=== PATIENT | female | born 1985 | race Two or more races ===

== ENCOUNTER → 2024-09-26 | Outpatient (CLI) | payer MEDICAID, SELFPAY ==
--- NOTE | 2024-09-26 10:00 | XR_ITS ---
Examination: Screening digital mammography, bilateral Computer aided detection 3-D breast Tomosynthesis, bilateral Date and time of exam: September 26, 2024 1001 hours No priors Indication: Screening, family history breast cancer Technique: Nonmagnified MLO, CC views of the breasts to been obtained, reconstructed from 3-D Tomosynthesis images. R2 computer aided detection program utilized for evaluation of suspicious masses and/or abnormal calcifications. 3-D Tomosynthesis images obtained. Findings: Scattered areas of fibroglandular density. Benign calcifications. No suspicious masses Impression: BI-RADS category II: Benign Findings. Recommend 1 year follow-up mammogram.
== END | disposition home or self-care (01) ==
PROVIDERS: Referring Provider Registered Nurse Community Health; Visit Provider Registered Nurse Community Health
DX: Z12.31 Encounter for screening mammogram for malignant neoplasm of breast (principal); Z80.3 Family history of malignant neoplasm of breast; R92.323 Mammographic fibroglandular density, bilateral breasts; R92.1 Mammographic calcification found on diagnostic imaging of breast
CPT/HCPCS: 77063; 77067

== ENCOUNTER 2024-10-20 21:25 | Emergency (ER) | payer MEDICAID, SELFPAY ==
[2024-10-20 21:26] VITALS: BMI 45.5
[2024-10-20 21:46] VITALS: BP 144/92; PULSE 85; RESP 18; TEMP 37.1; O2SAT 98
[2024-10-20] MEDS: CYCLObenzaPRINE 5 MG TABLET PO (22:13)
[2024-10-20] MEDS: KETOROLAC INJ 60 MG/2 ML VIAL IM (22:13)
--- NOTE | 2024-10-20 23:17 | PD.EDBACK ---
ED Back Injury Pain RME/HPI General Chief Complaint: Back Pain/Injury Stated Complaint: LOWER BACK PAIN SINCE YEST HX KIDNEY STONES Time Seen by Provider: 10/20/24 22:04 Arrival date/time: 10/20/24 21:25 39F with history of HTN presents to ED with 2 days of lower back pain that radiates down both legs. Patient denies fall/trauma, paresthesia, dysuria/hematuria, N/V and bowel/bladder incontinence. Patient has had kidney stones and states this feels different. Limitations: no limitations Related Data Home Medications ?Medication ?Instructions ?Recorded ?Confirmed fluoxetine 40 mg capsule 40 mg PO QDAY 01/03/22 01/03/22 Previous Rx's ?Medication ?Instructions ?Recorded hydrocodone 5 mg-acetaminophen 325 1 tab PO BID PRN pain #6 tabs 01/22/22 mg tablet ibuprofen 800 mg tablet 800 mg PO TID PRN pain #30 tabs 01/22/22 clindamycin phosphate 1 % lotion 1 applic topical BID #60 mL 05/29/23 naproxen 500 mg tablet 500 mg PO BID PRN pain #30 tabs 05/29/23 lisinopril 10 1 tab PO QDAY #30 tabs 08/14/23 mg-hydrochlorothiazide 12.5 mg tablet albuterol sulfate 90 mcg/actuation 2 puff inhalation Q6H PRN 10/21/23 aerosol inhaler (Ventolin HFA) shortness of breath or wheezing #8.5 grams azithromycin 500 mg tablet See Rx Instructions PO .COMPLEX #6 10/21/23 tabs benzonatate 100 mg capsule 100 mg PO TID #14 caps 10/21/23 etodolac 400 mg tablet 400 mg PO BID PRN pain #30 tabs 06/06/24 tramadol 37.5 mg-acetaminophen 325 1 tab PO BID PRN pain #15 tabs 06/06/24 mg tablet cyclobenzaprine 5 mg tablet 5 mg PO TID PRN muscle spasm #30 10/20/24 tabs Allergies Allergy/AdvReac Type Severity Reaction Status Date / Time No Known Allergies Allergy Verified 10/20/24 21:29 Review of Systems Review of Systems Systems Reviewed: All systems reviewed, normal except as documented Constitutional Constitutional: Reports system reviewed and no additional complaints, except as documented, Denies fever(s) and Denies headache(s) ENT Ears, Nose, Mouth, and Throat: Denies disequilibrium and Denies headache(s) Cardiovascular Cardiovascular: Reports system reviewed and no additional complaints, except as documented, Denies chest pain and Denies dyspnea Respiratory Respiratory: Reports system reviewed and no additional complaints, except as documented, Denies cough and Denies dyspnea Gastrointestinal Gastrointestinal: Reports system reviewed and no additional complaints, except as documented, Denies abdominal pain, Denies nausea and Denies vomiting Musculoskeletal Musculoskeletal: Reports as per HPI and Reports back pain Neurologic Neurologic: Reports system reviewed and no additional complaints, except as documented, Denies confusion, Denies disequilibrium and Denies headache(s) Psychiatric Psychiatric: Denies confusion Past Medical History Past Medical History NEUROLOGIC: Positive Migraine CARDIAC: Positive Cardiac Disorders; Negative Congestive Heart Failure or Hypertension RESPIRATORY: Positive Asthma; Negative Chronic Obstructive Pulmonary Disease (COPD) GENITOURINARY: Negative Renal Disease REPRODUCTIVE: Positive Previous Pregnancies MUSCULOSKELETAL: Positive Musculoskeletal Disorders and Arthritis ENDOCRINE: Negative Diabetes Mellitus Type 1 or Diabetes Mellitus Type 2 HEMATOLOGIC: Negative Blood Disorders or Sickle Cell Disease PSYCHO/SOCIAL: Positive Depression OTHER HISTORY: Negative Autoimmune Disease or Cancer Family History FAMILY HISTORY: Positive Family Cardiac Disorders (brother and mother) and Family Cancer (dad's dide); Negative Family Surgery or Family Anesthesia Reaction Surgical History SURGICAL: Positive Neurologic Surgery (brain sx at 15 days old) and Tubal Ligation (2006) Social History SMOKING STATUS: Never smoker ED Exam General Limitations: Present no limitations General appearance: Present alert and in no apparent distress Head Head exam: Present atraumatic Eye Eye exam: Present normal appearance, PERRL and EOMI ENT ENT exam: Present normal exam, normal oropharynx and mucous membranes moist Neck Neck exam: Present normal inspection, full ROM and trachea midline Chest Chest inspection: Present normal inspection and symmetric chest wall rise Respiratory Respiratory exam: Present normal lung sounds bilaterally Cardiovascular Cardiovascular exam: Present regular rate, normal rhythm and normal heart sounds Abdominal Exam Abdominal exam: Present soft and normal bowel sounds Extremities Exam Extremities exam: Present normal inspection and full ROM Back Exam Back exam: Present normal inspection and full ROM Neurological Exam Neurological exam: Present alert, oriented X3 and CN II-XII intact Psychiatric Psychiatric exam: Present normal affect and normal mood Skin Skin exam: Present warm, dry, intact and normal color Course Quality Measures none Orders Category Date Time Status CYCLObenzaPRINE [Flexeril] Med 10/20/24 22:05 Discontinued 5 mg PO X1 ONE Ketorolac Inj [Toradol Inj] Med 10/20/24 22:05 Discontinued 60 mg IM X1 ONE Vital Signs Vital signs: Vital Signs Temperature 98.8 F 10/20/24 21:46 Pulse Rate 85 10/20/24 21:46 Respiratory Rate 18 10/20/24 21:46 Blood Pressure 144/92 H 10/20/24 21:46 Pulse Oximetry (%) 98 10/20/24 21:46 Oxygen Delivery Method Room Air 10/20/24 21:46 O2 at 98% on RA and WNLs Back Pain / Injury MDM Narrative MDM Narrative:: 39F with history of HTN presents to ED with 2 days of lower back pain that radiates down both legs. Patient denies fall/trauma, paresthesia, dysuria/hematuria, N/V and bowel/bladder incontinence. Patient has had kidney stones and states this feels different. Physical exam reveals no back tenderness. Pain is with ROM, which is intact. Patient is afebrile, calm, and alert. Likely MSK in nature. Meds improved symptoms. Patient data External records reviewed:: [facility] previous records Clinical information provided by:: patient Social determinants that could affect healthcare access:: none Patient has the following chronic illnesses:: HTN How is presenting disease/condition affected by chronic disease/condition?: uneffected by Evaluation data The following diagnostics were reviewed and interpreted by me:: other (specify) (none) Lab and/or radiology exams considered but not ordered:: not ordered Interpretation Summary: n/a Medications / Prescriptions Medications or Prescriptions considered but not ordered:: ordered Medication administrations:: Medication Administration History Discontinued Medications Cyclobenzaprine HCl (Cyclobenzaprine 5 Mg Tablet) 5 mg PO X1 ONE Stop: 10/20/24 22:06 Last Admin: 10/20/24 22:13 Dose: 5 mg Documented By: OA Ketorolac Tromethamine (Ketorolac Inj 60 Mg/2 Ml Vial) 60 mg IM X1 ONE Stop: 10/20/24 22:06 Last Admin: 10/20/24 22:13 Dose: 60 mg Documented By: COLLEEN above Consultations Consultation(s) initiated? (list below): No Diagnosis Differential diagnosis back pain/injury: lumbar radiculopathy, sciatica, strain of lumbar region, renal colic, pyelonephritis, thoracic back pain, AAA, discitis and other (back pain) Most likely diagnosis given after review of the tests above:: back pain Admission Indicated Admission indicated?: not indicated Admission Request Was there a request for admission?: No Disposition Plan Disposition Plan: Discharge Discharge Attestation Discharge Attestation: The patient and all family members were given an opportunity to ask questions and understood the discharge instructions. Discharge instructions specifically effects, indications for sooner follow up or return to the emergency department, and the expected course of current diagnosis. Patient condition: Stable Discharge Plan Plan Patient Disposition: HOME (Self Care) Disposition Comment: Stable Prescriptions/Referrals Prescriptions/Med Rec: New cyclobenzaprine 5 mg tablet 5 mg PO TID PRN (Reason: muscle spasm) Qty: 30 0RF No Action ibuprofen 800 mg tablet 800 mg PO TID PRN (Reason: pain) Qty: 30 0RF hydrocodone-acetaminophen 5-325 mg tablet 1 tab PO BID MDD 10 PRN (Reason: pain) Qty: 6 0RF fluoxetine 40 mg Capsule 40 mg PO QDAY naproxen 500 mg tablet 500 mg PO BID PRN (Reason: pain) Qty: 30 0RF clindamycin phosphate 1 % lotion 1 applic topical BID Qty: 60 0RF lisinopril-hydrochlorothiazide 10-12.5 mg tablet 1 tab PO QDAY Qty: 30 0RF benzonatate 100 mg capsule 100 mg PO TID Qty: 14 0RF albuterol sulfate [Ventolin HFA] 90 mcg/actuation HFA aerosol inhaler 2 puff inhalation Q6H PRN (Reason: shortness of breath or wheezing) Qty: 8.5 0RF azithromycin 500 mg tablet See Rx Instructions .ROUTE .COMPLEX Qty: 6 0RF Rx Instructions: take 500 mg today (day 1), then 250 mg for 4 days (days 2-5) etodolac 400 mg tablet 400 mg PO BID PRN (Reason: pain) Qty: 30 0RF tramadol-acetaminophen 37.5-325 mg tablet 1 tab PO BID PRN (Reason: pain) Qty: 15 0RF Problem List Clinical Impression: Back pain Patient/Caregiver Discharge Instructions Additional Instructions: Please follow-up with PCP within 24-48 hours and return immediately if symptoms worsen. If problem persists, recommend outpatient PT and/or MRI follow-up. In the meantime, rest, use ice/heat, and/or compression. Ibuprofen/Tylenol can be used simultaneously for greater fever/pain control. Print Language: Czech Stand Alone Forms: Patient Portal Info Letter PA/GENERAL SERVICE TECHNICIAN Supervising Physician PA/GENERAL SERVICE TECHNICIAN Supervising Physician: Dr. Sotomayor
== END 2024-10-20 22:48 | disposition home or self-care (01) ==
PROVIDERS: Emergency Provider Emergency Medicine; PCP Registered Nurse Community Health
DX: M54.50 Low back pain, unspecified (principal)
CPT/HCPCS: 96372; 99283; J1885; A9270

== ENCOUNTER 2024-11-22 22:10 | Emergency (ER) | payer MEDICAID, SELFPAY ==
[2024-11-22 22:11] VITALS: BMI 44.8
[2024-11-22 22:55] VITALS: BP 152/94; PULSE 91; RESP 19; TEMP 37.2; O2SAT 97
--- NOTE | 2024-11-22 23:12 | XR_ITS ---
Examination: CT brain head without contrast. 2-D sagittal coronal reconstructions Date and time of exam:November 22, 2024 11:23 PM Indications: Headaches with elevated blood pressure today CTDI: vol (mGy):54.70 DLP: (mGycm):1199 Technique: Multiple CT axial sections of the brain have been obtained, 5 mm slice thickness. Contrast has not been administered. 2-D sagittal, coronal reconstructions have been obtained Low dose protocols were performed. One or more of the following dose reduction techniques were used; automated exposure control, adjustment of the mA and/or KV according to patient size, use of iterative reconstruction technique. Findings: No significant ventricular enlargement. Intra-axial or extra-axial hemorrhage density is not seen. No mass effect or midline shift Basal cisterns are not remarkable. Fourth ventricle is midline. Cranial vault intact. Impression: Negative for acute hemorrhage, mass effect or midline shift
--- NOTE | 2024-11-22 23:13 | PD.EDRME ---
Rapid Medical Screening Exam RME Arrival date/time: 11/22/24 22:10 39-year-old female past medical history of hypertension presents emergency department complaining of headache and lightheadedness that started today. Chief Complaint: Headache Time Seen by Provider: 11/22/24 23:03 Vital signs: Vital Signs Temperature 99 F 11/22/24 22:55 Pulse Rate 91 11/22/24 22:55 Respiratory Rate 19 11/22/24 22:55 Blood Pressure 152/94 H 11/22/24 22:55 Pulse Oximetry (%) 97 11/22/24 22:55 Oxygen Delivery Method Room Air 11/22/24 22:55 Vital signs reviewed by provider: Yes
[2024-11-22] MEDS: ACETAMINOPHEN 500 MG TABLET 1000 MG PO (23:43)
[2024-11-22] MEDS: METOCLOPRAMIDE 5 MG TABLET 10 MG PO (23:44)
--- NOTE | 2024-11-22 23:59 | EDNOTE_ITS ---
ED Headache RME/HPI General Chief Complaint: Headache Stated Complaint: LIGHT HEADED, HIGH BP Time Seen by Provider: 11/22/24 23:03 Source: patient Arrival date/time: 11/22/24 22:10 39-year-old female past medical history of hypertension presents emergency department complaining of headache and lightheadedness that started today. Mode of arrival: ambulatory Limitations: no limitations RME / HPI RME / HPI Narrative: 11/22/24 22:10 39-year-old female past medical history of hypertension presents emergency department complaining of headache and lightheadedness that started today. Related Data Home Medications ?Medication ?Instructions ?Recorded ?Confirmed fluoxetine 40 mg capsule 40 mg PO QDAY 01/03/22 01/03/22 Previous Rx's ?Medication ?Instructions ?Recorded hydrocodone 5 mg-acetaminophen 325 1 tab PO BID PRN pain #6 tabs 01/22/22 mg tablet ibuprofen 800 mg tablet 800 mg PO TID PRN pain #30 tabs 01/22/22 clindamycin phosphate 1 % lotion 1 applic topical BID #60 mL 05/29/23 naproxen 500 mg tablet 500 mg PO BID PRN pain #30 tabs 05/29/23 lisinopril 10 1 tab PO QDAY #30 tabs 08/14/23 mg-hydrochlorothiazide 12.5 mg tablet albuterol sulfate 90 mcg/actuation 2 puff inhalation Q6H PRN 10/21/23 aerosol inhaler (Ventolin HFA) shortness of breath or wheezing #8.5 grams azithromycin 500 mg tablet See Rx Instructions PO .COMPLEX #6 10/21/23 tabs benzonatate 100 mg capsule 100 mg PO TID #14 caps 10/21/23 etodolac 400 mg tablet 400 mg PO BID PRN pain #30 tabs 06/06/24 tramadol 37.5 mg-acetaminophen 325 1 tab PO BID PRN pain #15 tabs 06/06/24 mg tablet cyclobenzaprine 5 mg tablet 5 mg PO TID PRN muscle spasm #30 10/20/24 tabs Allergies Allergy/AdvReac Type Severity Reaction Status Date / Time No Known Allergies Allergy Verified 10/20/24 21:29 Review of Systems Review of Systems Systems Reviewed: All systems reviewed, normal except as documented Constitutional Constitutional: Reports system reviewed and no additional complaints, except as documented, Denies body ache(s), Denies chills, Denies fever(s) and Reports headache(s) Eyes Eyes: Reports system reviewed and no additional complaints, except as documented and Denies change in vision ENT Ears, Nose, Mouth, and Throat: Reports system reviewed and no additional complaints, except as documented, Denies disequilibrium, Denies dizziness, Reports headache(s), Denies sore throat and Denies vertigo Cardiovascular Cardiovascular: Reports system reviewed and no additional complaints, except as documented, Denies chest pain and Denies dyspnea Respiratory Respiratory: Reports system reviewed and no additional complaints, except as documented, Denies chest congestion, Denies cough and Denies dyspnea Gastrointestinal Gastrointestinal: Reports system reviewed and no additional complaints, except as documented, Denies abdominal pain, Denies nausea and Denies vomiting Musculoskeletal Musculoskeletal: Reports system reviewed and no additional complaints, except as documented, Denies abnormal gait and Denies arthralgias Integumentary/Breasts Skin/Breast: Reports system reviewed and no additional complaints, except as documented, Denies erythema, Denies rash and Denies wounds Neurologic Neurologic: Reports system reviewed and no additional complaints, except as documented, Denies abnormal gait, Denies disequilibrium, Denies dizziness, Reports headache(s) and Denies vertigo Past Medical History Past Medical History NEUROLOGIC: Positive Migraine CARDIAC: Positive Cardiac Disorders; Negative Congestive Heart Failure or Hypertension RESPIRATORY: Positive Asthma; Negative Chronic Obstructive Pulmonary Disease (COPD) GENITOURINARY: Negative Renal Disease REPRODUCTIVE: Positive Previous Pregnancies MUSCULOSKELETAL: Positive Musculoskeletal Disorders and Arthritis ENDOCRINE: Negative Diabetes Mellitus Type 1 or Diabetes Mellitus Type 2 HEMATOLOGIC: Negative Blood Disorders or Sickle Cell Disease PSYCHO/SOCIAL: Positive Depression OTHER HISTORY: Negative Autoimmune Disease or Cancer Family History FAMILY HISTORY: Positive Family Cardiac Disorders (brother and mother) and Family Cancer (dad's dide); Negative Family Surgery or Family Anesthesia Reaction Surgical History SURGICAL: Positive Neurologic Surgery (brain sx at 15 days old) and Tubal Ligation (2006) Social History SMOKING STATUS: Never smoker ED Exam General Limitations: Present no limitations General appearance: Present alert and in no apparent distress Head Head exam: Present atraumatic Eye Eye exam: Present normal appearance, PERRL and EOMI ENT ENT exam: Present normal exam, normal oropharynx and mucous membranes moist Neck Neck exam: Present normal inspection, full ROM and trachea midline Chest Chest inspection: Present normal inspection and symmetric chest wall rise Respiratory Respiratory exam: Present normal lung sounds bilaterally Cardiovascular Cardiovascular exam: Present regular rate, normal rhythm and normal heart sounds Abdominal Exam Abdominal exam: Present soft and normal bowel sounds Extremities Exam Extremities exam: Present normal inspection and full ROM Back Exam Back exam: Present normal inspection and full ROM Neurological Exam Neurological exam: Present alert, oriented X3 and CN II-XII intact Psychiatric Psychiatric exam: Present normal affect and normal mood Skin Skin exam: Present warm, dry, intact and normal color Course Quality Measures none Orders Category Date Time Status CT head/brain wo con Stat Exams 11/22/24 23:12 Completed Acetaminophen Tab [Tylenol ES Tab] Med 11/22/24 23:12 Discontinued 1,000 mg PO X1 ONE Metoclopramide [Reglan] Med 11/22/24 23:12 Discontinued 10 mg PO X1 ONE Vital Signs Vital signs: Vital Signs Temperature 99 F 11/22/24 22:55 Pulse Rate 91 11/22/24 22:55 Respiratory Rate 19 11/22/24 22:55 Blood Pressure 152/94 H 11/22/24 22:55 Pulse Oximetry (%) 97 11/22/24 22:55 Oxygen Delivery Method Room Air 11/22/24 22:55 97% room air within normal limits Headache MDM Narrative MDM Narrative:: 39-year-old female past medical history of hypertension presents emergency department complaining of headache and lightheadedness that started today. Patient GCS of [address] head unremarkable. Patient reports significant improvement in pain after medication. Patient stable for discharge instructed to follow-up with primary care provider. Patient data External records reviewed:: [facility] previous records Clinical information provided by:: patient Social determinants that could affect healthcare access:: none Patient has the following chronic illnesses:: See chart How is presenting disease/condition affected by chronic disease/condition?: uneffected by Evaluation data The following diagnostics were reviewed and interpreted by me:: radiology exam(s) Lab and/or radiology exams considered but not ordered:: Ordered Interpretation Summary: Interpreted by me Medications / Prescriptions Medications or Prescriptions considered but not ordered:: Ordered Medication administrations:: Medication Administration History Discontinued Medications Acetaminophen (Acetaminophen 500 Mg Tablet) 1,000 mg PO X1 ONE Stop: 11/22/24 23:13 Last Admin: 11/22/24 23:43 Dose: 1,000 mg Documented By: MELIA Metoclopramide HCl (Metoclopramide 5 Mg Tablet) 10 mg PO X1 ONE Stop: 11/22/24 23:13 Last Admin: 11/22/24 23:44 Dose: 10 mg Documented By: MC Given Consultations Consultation(s) initiated? (list below): No Diagnosis Differential diagnosis headache: migraine, tension headache, subarachnoid hemorrhage, headache, meningitis, sinusitis and postconcussion syndrome Most likely diagnosis given after review of the tests above:: Headache Admission Indicated Admission indicated?: not indicated Admission Request Was there a request for admission?: No Disposition Plan Disposition Plan: Discharge Discharge Attestation Discharge Attestation: The patient and all family members were given an opportunity to ask questions and understood the discharge instructions. Discharge instructions specifically effects, indications for sooner follow up or return to the emergency department, and the expected course of current diagnosis. Patient condition: Stable Discharge Plan Plan Patient Disposition: HOME (Self Care) Disposition Comment: Stable Prescriptions/Referrals Prescriptions/Med Rec: No Action ibuprofen 800 mg tablet 800 mg PO TID PRN (Reason: pain) Qty: 30 0RF hydrocodone-acetaminophen 5-325 mg tablet 1 tab PO BID MDD 10 PRN (Reason: pain) Qty: 6 0RF fluoxetine 40 mg Capsule 40 mg PO QDAY naproxen 500 mg tablet 500 mg PO BID PRN (Reason: pain) Qty: 30 0RF clindamycin phosphate 1 % lotion 1 applic topical BID Qty: 60 0RF lisinopril-hydrochlorothiazide 10-12.5 mg tablet 1 tab PO QDAY Qty: 30 0RF cyclobenzaprine 5 mg tablet 5 mg PO TID PRN (Reason: muscle spasm) Qty: 30 0RF benzonatate 100 mg capsule 100 mg PO TID Qty: 14 0RF albuterol sulfate [Ventolin HFA] 90 mcg/actuation HFA aerosol inhaler 2 puff inhalation Q6H PRN (Reason: shortness of breath or wheezing) Qty: 8.5 0RF azithromycin 500 mg tablet See Rx Instructions .ROUTE .COMPLEX Qty: 6 0RF Rx Instructions: take 500 mg today (day 1), then 250 mg for 4 days (days 2-5) etodolac 400 mg tablet 400 mg PO BID PRN (Reason: pain) Qty: 30 0RF tramadol-acetaminophen 37.5-325 mg tablet 1 tab PO BID PRN (Reason: pain) Qty: 15 0RF Referrals: Delmis Bain FNP [Primary Care Provider] - In 1 week Problem List Clinical Impression: Headache Patient/Caregiver Discharge Instructions Discharge Activity: activity as tolerated Education Materials: Self-Care for Headaches Additional Instructions: Drink plenty of fluids and get plenty of rest. Take Tylenol or ibuprofen as needed for pain. Follow-up with primary care provider in 2 to 3 days. Return to emergency department for any worsening symptoms or as needed. Print Language: Telugu Stand Alone Forms: [employer]elina Award Info., Patient Portal Info Letter REJI/[employer] Supervising Physician REJI/MERLY Supervising Physician: Dr. Hernandez
== END 2024-11-23 01:18 | disposition home or self-care (01) ==
PROVIDERS: Emergency Provider Emergency Medicine; PCP Registered Nurse Community Health
DX: R51.9 Headache, unspecified (principal); R42 Dizziness and giddiness
CPT/HCPCS: 70450; 99284; A9270

== ENCOUNTER → 2025-01-09 | Outpatient (CLI) | payer MEDICAID, SELFPAY ==
--- NOTE | 2025-01-09 09:24 | XR_ITS ---
Examination: PA lateral chest 2 views Technique: Upright PA lateral chest 2 views Exam date and time: January 09, 2025 0935 hrs. Comparison December 08, 2023 Indications: Headaches difficulty breathing today. Findings: Normal heart size Lungs are clear. The osseous structures are intact Impression: No active disease
== END | disposition home or self-care (01) ==
LOC: CDIM 09:17
PROVIDERS: PCP Registered Nurse Community Health; Referring Provider Dermatology; Visit Provider Dermatology
DX: L73.2 Hidradenitis suppurativa (principal)
CPT/HCPCS: 71046

== ENCOUNTER 2025-03-22 23:14 | Emergency (ER) | payer MEDICAID, SELFPAY ==
[2025-03-22 23:15] VITALS: BMI 44.2
[2025-03-22 23:52] VITALS: BP 149/91; PULSE 92; RESP 22; TEMP 36.8; O2SAT 96
== END 2025-03-23 01:35 | disposition left against medical advice (07) ==
LOC: SERX 03-23 01:43
PROVIDERS: Emergency Provider Emergency Medicine; PCP Registered Nurse Community Health
DX: Z53.21 Procedure and treatment not carried out due to patient leaving prior to being seen by health care provider (principal)
CPT/HCPCS: 99281

== ENCOUNTER 2025-08-07 18:19 | Emergency (ER) | payer MEDICAID, SELFPAY ==
[2025-08-07 19:02] VITALS: BP 123/84; PULSE 103; RESP 20; TEMP 37; O2SAT 95; BMI 41.5
--- NOTE | 2025-08-07 19:11 | XR_ITS ---
Examination: Pelvic ultrasound, transabdominal, complete Technique: Transabdominal ultrasound of the pelvis performed using grayscale imaging Date and time of exam: August [id number] hrs. Indications: Vaginal bleeding and pelvic pain beginning 2 weeks ago Findings: Uterus 14.8 cm left lateral uterine body area of fibroid degeneration 5.7 x 5.5 cm Endometrial stripe 0.5 cm Ovaries not visualized secondary to patient size Impression: Uterine body area of fibroid degeneration 5.5 x 5.7 x 5.5 cm
--- NOTE | 2025-08-07 19:12 | PD.EDVAGBL ---
ED OB Contraction Preg RMI/HPI General Chief complaint: Vaginal Bleeding Stated complaint: PERIOD FOR 2 WKS; ABD/BACK/LLE PAIN Time Seen by Provider: 08/07/25 18:48 Source: patient, RN notes reviewed and old records reviewed Arrival date/time: 08/07/25 18:19 Mode of arrival: ambulatory Limitations: no limitations RME / HPI RME / HPI Narrative: 40yof presents to ED for 2-week history of vaginal bleeding. Patient reports she missed her period in June. Denies history of irregular or heavy cycles. Patient reports using 2?3 pads per day. She c/o left pelvic pain radiating to left lower back and left hip. No fever, nausea/vomiting, dysuria or vaginal discharge reported. No medications or treatment since symptom onset. Denies OCP use. Related Data Home Medications ?Medication ?Instructions ?Recorded ?Confirmed fluoxetine 40 mg capsule 40 mg PO QDAY 01/03/22 01/03/22 Previous Rx's ?Medication ?Instructions ?Recorded hydrocodone 5 mg-acetaminophen 325 1 tab PO BID PRN pain #6 tabs 01/22/22 mg tablet ibuprofen 800 mg tablet 800 mg PO TID PRN pain #30 tabs 01/22/22 clindamycin phosphate 1 % lotion 1 applic topical BID #60 mL 05/29/23 naproxen 500 mg tablet 500 mg PO BID PRN pain #30 tabs 05/29/23 lisinopril 10 1 tab PO QDAY #30 tabs 08/14/23 mg-hydrochlorothiazide 12.5 mg tablet albuterol sulfate 90 mcg/actuation 2 puff inhalation Q6H PRN 10/21/23 aerosol inhaler (Ventolin HFA) shortness of breath or wheezing #8.5 grams azithromycin 500 mg tablet See Rx Instructions PO .COMPLEX #6 10/21/23 tabs benzonatate 100 mg capsule 100 mg PO TID #14 caps 10/21/23 etodolac 400 mg tablet 400 mg PO BID PRN pain #30 tabs 06/06/24 tramadol 37.5 mg-acetaminophen 325 1 tab PO BID PRN pain #15 tabs 06/06/24 mg tablet cyclobenzaprine 5 mg tablet 5 mg PO TID PRN muscle spasm #30 10/20/24 tabs ibuprofen 600 mg tablet 600 mg PO Q6H PRN pain #30 tabs 08/07/25 medroxyprogesterone 10 mg tablet 10 mg PO BID 5 days #10 tabs 08/07/25 (Provera) methocarbamol 500 mg tablet 1,000 mg (2 x 500 mg) PO Q8H PRN 08/07/25 cramping #30 tabs Allergies Allergy/AdvReac Type Severity Reaction Status Date / Time No Known Allergies Allergy Verified 08/07/25 18:23 Review of Systems Review of Systems Systems Reviewed: All systems reviewed, normal except as documented Constitutional Constitutional: Denies chills and Denies fever(s) Gastrointestinal Gastrointestinal: Denies nausea and Denies vomiting Genitourinary Genitourinary: Reports abnormal vaginal bleeding, Denies dysuria, Denies flank pain, Reports pelvic pain and Denies vaginal discharge Musculoskeletal Musculoskeletal: Reports back pain Past Medical History Past Medical History CARDIAC: Positive Hypertension GASTROINTESTINAL: Positive Obesity Surgical History OTHER SURGICAL HX: tubal ligation, surgeries x3 for HS, tristan Past Medical History Comments PMH COMMENT: Hidradenitis supparativa ED Exam General Limitations: Present no limitations General appearance: Present alert and in no apparent distress Head Head exam: Present atraumatic and normocephalic Eye Eye exam: Present normal appearance, PERRL and EOMI ENT ENT exam: Present normal exam and mucous membranes moist Neck Neck exam: Present normal inspection and full ROM Chest Chest inspection: Present normal inspection and symmetric chest wall rise Respiratory Respiratory exam: Present normal lung sounds bilaterally; Absent respiratory distress Cardiovascular Cardiovascular exam: Present regular rate and normal rhythm Abdominal Exam Abdominal exam: Present soft; Absent distention, tenderness, guarding or rebound Extremities Exam Extremities exam: Present normal inspection and full ROM Back Exam Back exam: Absent CVA tenderness (R) or CVA tenderness (L) Neurological Exam Neurological exam: Present alert and oriented X3 Psychiatric Psychiatric exam: Present normal affect and normal mood Skin Skin exam: Present warm, dry, intact and normal color Course Quality Measures none Orders Category Date Time Status US pelvic complete Stat Exams 08/07/25 19:11 Completed CBC Stat Lab 08/07/25 19:17 Completed CMP [Comprehensive Metabolic Panel] Stat Lab 08/07/25 19:17 Completed HCG Qualitative,Urine Stat Lab 08/07/25 20:00 Completed UA [Urinalysis] Stat Lab 08/07/25 20:00 Completed Vital Signs Vital signs: Vital Signs Temperature 98.6 F 08/07/25 19:02 Pulse Rate 103 H 08/07/25 19:02 Respiratory Rate 20 08/07/25 19:02 Blood Pressure 123/84 08/07/25 19:02 Pulse Oximetry (%) 95 08/07/25 19:02 Oxygen Delivery Method Room Air 08/07/25 19:02 Vaginal Bleeding MDM Narrative MDM Narrative: 40yof presents to ED for 2-week history of vaginal bleeding. Patient reports she missed her period in June. Denies history of irregular or heavy cycles. Patient reports using 2?3 pads per day. She c/o left pelvic pain radiating to left lower back and left hip. No fever, nausea/vomiting, dysuria or vaginal discharge reported. No medications or treatment since symptom onset. Denies OCP use. Patient updated on labs, imaging. She is hemodynamically stable. Will rx 5-day course of Provera. Encouraged close follow-up with technical services analyst. Stable for discharge, RTED precautions given. Patient data External records reviewed:: [facility] previous records (11/22/24 ED visit for headache) Clinical information provided by:: patient Social determinants that could affect healthcare access:: other (specify) (poor access to healthcare) Patient has the following chronic illnesses:: obesity, HTN How is presenting disease/condition affected by chronic disease/condition?: uneffected by Evaluation data The following diagnostics were reviewed and interpreted by me:: lab results and radiology exam(s) Lab and/or radiology exams considered but not ordered:: none Interpretation Summary: Mild leukocytosis No anemia Pelvic US: Impression: Uterine body area of fibroid degeneration 5.5 x 5.7 x 5.5 cm Dictated By: Jose Luis Roldan MD Medications / Prescriptions Medications or Prescriptions considered but not ordered:: no antibiotics recommended at this time Medication administrations:: none Consultations Consultation(s) initiated? (list below): No Diagnosis Vaginal Bleeding Differential Diagnosis: other (Abnormal vaginal bleeding, ovarian cyst, uterine fibroid, anemia, ) Most likely diagnosis given after review of the tests above:: abnormal vaginal bleeding, uterine fibroid Admission Indicated Admission indicated?: not indicated Admission Request Was there a request for admission?: No Disposition Plan Disposition Plan: Discharge Discharge Attestation Discharge Attestation: The patient and all family members were given an opportunity to ask questions and understood the discharge instructions. Discharge instructions specifically effects, indications for sooner follow up or return to the emergency department, and the expected course of current diagnosis. Patient condition: Stable Discharge Plan Plan Patient Disposition: HOME (Self Care) Patient condition on transfer: Stable Prescriptions/Referrals Prescriptions/Med Rec: New ibuprofen 600 mg tablet 600 mg PO Q6H PRN (Reason: pain) Qty: 30 0RF methocarbamol 500 mg tablet 1,000 mg PO Q8H PRN (Reason: cramping) Qty: 30 0RF medroxyprogesterone [Provera] 10 mg tablet 10 mg PO BID 5 Days Qty: 10 0RF No Action ibuprofen 800 mg tablet 800 mg PO TID PRN (Reason: pain) Qty: 30 0RF hydrocodone-acetaminophen 5-325 mg tablet 1 tab PO BID MDD 10 PRN (Reason: pain) Qty: 6 0RF fluoxetine 40 mg Capsule 40 mg PO QDAY naproxen 500 mg tablet 500 mg PO BID PRN (Reason: pain) Qty: 30 0RF clindamycin phosphate 1 % lotion 1 applic topical BID Qty: 60 0RF lisinopril-hydrochlorothiazide 10-12.5 mg tablet 1 tab PO QDAY Qty: 30 0RF cyclobenzaprine 5 mg tablet 5 mg PO TID PRN (Reason: muscle spasm) Qty: 30 0RF benzonatate 100 mg capsule 100 mg PO TID Qty: 14 0RF albuterol sulfate [Ventolin HFA] 90 mcg/actuation HFA aerosol inhaler 2 puff inhalation Q6H PRN (Reason: shortness of breath or wheezing) Qty: 8.5 0RF azithromycin 500 mg tablet See Rx Instructions .ROUTE .COMPLEX Qty: 6 0RF Rx Instructions: take 500 mg today (day 1), then 250 mg for 4 days (days 2-5) etodolac 400 mg tablet 400 mg PO BID PRN (Reason: pain) Qty: 30 0RF tramadol-acetaminophen 37.5-325 mg tablet 1 tab PO BID PRN (Reason: pain) Qty: 15 0RF Referrals: No Primary/Family,Physician [Primary Care Provider] - In 1 week Problem List Clinical Impression: Abnormal vaginal bleeding, Uterine fibroid Patient/Caregiver Discharge Instructions Education Materials: ED Dysfunctional Uterine Bleeding, ED Uterine Fibroids Print Language: Lithuanian Stand Alone Forms: Adelina Award Info., Patient Portal Info Letter PA/CONCRETE FLOATER Supervising Physician PA/CONCRETE FLOATER Supervising Physician: Honey
[2025-08-07 20:10] LABS: Collection Type, Urine Clean Catch
[2025-08-07 20:11] LABS: Basophils # (Auto) 0.1 Thou/mm3 (0.0-0.2); Basophils % (Auto) 0 % (0-2.5); Eosinophils # (Auto) 0.1 Thou/mm3 (0.0-0.5); Eosinophils % (Auto) 0 % (0-10); Hematocrit 38.9 % (36.0-46.0); Hemoglobin 12.4 g/dL (12.0-16.0); Immature Granulocytes Auto 0.10 Thou/mm3 (0.00-0.00); Lymphocytes # (Auto) 2.9 Thou/mm3 (1.0-4.8); Lymphocytes % (Auto) 18 % (10-50); Mean Corpuscular HGB Conc 31.9 g/dl (31.0-37.0); Mean Corpuscular Hemoglobin 29.6 pg (25.0-35.0); Mean Corpuscular Volume 93 fL (80-100); Monocytes # (Auto) 0.7 Thou/mm3 (0.0-0.8); Monocytes % (Auto) 5 % (0-12); Neutrophils # (Auto) 12.1 Thou/mm3 (1.8-7.7); Neutrophils % (Auto) 76 % (37-80); Nucleated Red Blood Cell # 0.00 Thou/mm3 (0.00-0.00); Nucleated Red Blood Cell % 0 /100 WBC (0); Platelet Count 507 Thou/mm3 (140-440); RDW Standard Deviation 49.5 fL (36.4-46.3); Red Blood Count 4.19 Miln/mm3 (4.00-5.20); White Blood Count 15.9 Thou/mm3 (3.6-11.0)
[2025-08-07 20:22] LABS: HCG Qualitative,Urine Negative
[2025-08-07 20:23] LABS: Alanine Aminotransferase 19 U/L (10-49); Albumin, Serum 4.4 gm/dL (3.5-5.0); Albumin/Globulin Ratio 1.1 (1.2-2.2); Alkaline Phosphatase 108 U/L (46-116); Anion Gap 10 (7-16); Aspartate Amino Transferase 14 U/L (0-34); BUN/Creatinine Ratio 13 Ratio (12-20); Bilirubin,Total 0.4 mg/dL (0.3-1.2); Blood Urea Nitrogen 10 mg/dL (9-23); Calcium 9.7 mg/dL (8.3-10.6); Calcium (Corrected) 9.7 mg/dL (8.5-10.1); Carbon Dioxide 28.0 mMol/L (20.0-31.0); Chloride 100 mMol/L (98-107); Creatinine (Component) 0.8 mg/dL (0.6-1.3); Estimated Creatinine Clearance 104.1 mL/min (>60); Globulin 3.9 gm/dL (2.3-3.5); Glucose 90 mg/dL (74-106); Osmolality,Calculated 274 (275-295); Potassium 3.9 mMol/L (3.4-5.1); Sodium 138 mMol/L (136-145); Total Protein 8.3 gm/dL (5.7-8.2); eGFR > 60 See Note
[2025-08-07 20:32] LABS: Bilirubin,Urine Negative (Negative); Blood,Urine 3+ (Negative); Clarity,Urine Clear (Clear/Hazy); Color,Urine Yellow (Lt Yel-Yel); Glucose, Urine Negative (Negative); Ketones,Urine Negative (Negative); Leukocyte Esterase,Urine Positive (Negative); Nitrite,Urine Negative (Negative); PH,Urine 6.0 (5.0-7.0); Protein,Urine Trace (Neg - Trace); RBC,Urine 9 /hpf (0-3); Specific Gravity,Urine 1.028 (1.001-1.035); Squamous Epithelial Cell,Urine 2 /hpf (0-5); Urobilinogen,Urine Negative mg/dL (0.0-1.0); WBC,Urine 6 /hpf (0-5)
== END 2025-08-07 21:50 | disposition home or self-care (01) ==
PROVIDERS: Physician Assistant; Emergency Provider Emergency Medicine
DX: D25.9 Leiomyoma of uterus, unspecified (principal)
CPT/HCPCS: 36415; 76856; 80053; 81001; 81025; 85025; 99283